=== PATIENT | female | born 1960 | race Caucasian/White ===

== ENCOUNTER 2017-05-18 05:32 | Outpatient (CLI) | payer OTHER ==
[~2017-05-18] VITALS: Ht 172.7 cm; Wt 64.9 kg
[2017-05-18] MEDS ORDERED: ESTR1TAB24 PO (15:26)
[2017-05-18] MEDS ORDERED: MEDR2.5T6 PO (15:26)
== END 2017-05-18 15:34 ==
LOC: PREOP 05:32
PROVIDERS: ATTEND Obstetrics & Gynecology
DX: Z01.818 Encounter for other preprocedural examination (principal); N95.0 Postmenopausal bleeding; D64.9 Anemia, unspecified

== ENCOUNTER 2017-05-23 10:59 | Day surgery (SDC) | payer OTHER ==
[~2017-05-23] VITALS: Ht 172.7 cm; Wt 64.9 kg
[~2017-05-23 10:59] MED LIST: ESTR1TAB24 PO; MEDR2.5T6 PO
[2017-05-23 11:05] VITALS: BP 145/91
[2017-05-23] MEDS ORDERED: ceFAZolin INJECTION 1,000 MG in NS (IVPB) 100 ML IV ONE (11:15)
[2017-05-23] MEDS: LACTATED RINGERS 1,000 ML IV PRN ×2 (11:50→13:48)
[2017-05-23 12:05] LABS: BASOPHILS % (AUTO) 1 % (0-10); EOSINOPHILS # (AUTO) 0.1 10^3/uL (0.0-0.3); EOSINOPHILS % (AUTO) 1 % (0-10); HEMATOCRIT 43 % (35-52); HEMOGLOBIN 14.5 G/DL (11.5-16.0); LYMPHOCYTES # (AUTO) 1.5 X 10^3 (1.0-4.0); LYMPHOCYTES % (AUTO) 26 % (12-44); MEAN CORPUSCULAR HEMOGLOBIN 31 PG (25-34); MEAN CORPUSCULAR HGB CONC 34 G/DL (32-36); MEAN CORPUSCULAR VOLUME 92 FL (80-99); MEAN PLATELET VOLUME 10.8 FL (7.4-10.4); MONOCYTES # (AUTO) 0.3 X 10^3 (0.0-1.0); MONOCYTES % (AUTO) 6 % (0-12); NEUTROPHILS % (AUTO) 67 % (42-75); PLATELET COUNT 169 10^3/uL (130-400); RED BLOOD COUNT 4.66 10^6/uL (4.35-5.85); RED CELL DISTRIBUTION WIDTH 13.5 % (10.0-14.5); WHITE BLOOD COUNT 5.9 10^3/uL (4.3-11.0)
[2017-05-23] MEDS ORDERED: MIDAZOLAM 2 MG/2 ML (VERSED) VIAL ONE (12:05)
[2017-05-23] MEDS ORDERED: fentaNYL INJECTION 100 MCG/2 ML AMP ONE (12:06)
--- NOTE | 2017-05-23 13:01 | Progress Note-Pre Operative ---
Pre-Operative Progress Note H&P Reviewed The H&P was reviewed, patient examined and no changes noted. Date Seen by Provider: May 23, 2017 Time Seen by Provider: 13:00 Date H&P Reviewed: May 23, 2017 Time H&P Reviewed: 13:01 Pre-Operative Diagnosis: Post menopausal bleeding/intrauterine mass TAMARA DIMAS MD May 23, 2017 1:01 pm
[2017-05-23] MEDS ORDERED: D5 LR IV SOLUTION 1,000 ML IV SCH (13:02)
--- NOTE | 2017-05-23 13:02 | Progress Note-Post Operative ---
Post-Operative Progess Note Surgeon (s)/Data Processing Control Clerk (s) Surgeon TAMARA DIMAS MD Pre-Operative Diagnosis Post menopausal bleeding/intrauterine mass Post-Operative Diagnosis Same with pathology pending Procedure & Operative Findings Date of Procedure 05/23/17 Procedure Performed/Findings Hysteroscopy with directed biopsy and D&C Anesthesia Type GETA Specimens/Packing Specimens Removed Intrauterine mass biopsied directly out and endometrial curettings Packing: None TAMARA DIMAS MD May 23, 2017 1:02 pm
[2017-05-23] MEDS ORDERED: OXYC-465 PO (13:03)
--- NOTE | 2017-05-23 13:05 | Discharge Instructions ---
Discharge Instructions Discharge Medications New, Converted or Re-Newed RX: RX on Chart Patient Instructions Patient Instructions: As directed Return to The Hospital For: As directed Activity & Diet Discharge Diet: No Restrictions Activity as Tolerated: No Orders-Post D/C & Referrals Follow Up Appt: Call to make follow up appt. for patient in 2 weeks. Activity: As tolerated and fully awake and no longer under the effect of anesthetics. Diet: As tolerated-Clear Liquids only if nauseated. May shower or tub bathe as desired. Nothing per vagina for 2 weeks. Patient to return to the clinic as soon as possible for: Temperature greater than 101F, Severe Pain, Foul discharge from incision or vagina, Excessive Bleeding (more than a period). TAMARA DIMAS MD May 23, 2017 1:05 pm
[2017-05-23] MEDS ORDERED: MEPERIDINE (DEMEROL) INJ 100 MG/ML IM ONE (13:15)
[2017-05-23] MEDS ORDERED: PROMETHAZINE INJ 25 MG/ML (PHENERGAN) AMP IM ONE (13:15)
[2017-05-23] MEDS ORDERED: oxyCODONE/APAP 10/325MG (PERCOCET 10) TABLET PO PRN (13:15)
[2017-05-23] MEDS ORDERED: ONDANSETRON 4 MG/2 ML (SDV) Z0FRAN IVP PRN ×2 (13:15→14:00)
[2017-05-23] MEDS ORDERED: KETOROLAC 30 MG/ML VIAL IVP ONE (13:15)
[2017-05-23] MEDS ORDERED: LIDOCAINE PF 2% 5 ML (XYLOCAINE) VIAL ONE (13:18)
[2017-05-23] MEDS ORDERED: proPOfol 200 MG/20 ML (DIPRIVAN) VIAL IV ONE (13:18)
[2017-05-23] MEDS ORDERED: LIDOCAINE JELLY 2% (XYLOCAINE) 5 ML TUBE ONE (13:18)
[2017-05-23] MEDS ORDERED: SEVOFLURANE (ULTANE) 15 ML INHAL SOLN ONE (13:19)
[2017-05-23] MEDS ORDERED: ONDANSETRON 4 MG/2 ML (SDV) Z0FRAN ONE (13:19)
[2017-05-23] MEDS ORDERED: morphine INJ 10 MG/ML 1ML (SYR OR VIAL) ONE (13:57)
[2017-05-23] MEDS ORDERED: MEPERIDINE (DEMEROL) INJ 50 MG/ML IVP PRN (14:00)
[2017-05-23] MEDS ORDERED: morphine INJ 10 MG/ML 1ML (SYR OR VIAL) IVP PRN (14:00)
--- NOTE | 2017-05-23 14:39 | Anesthesia-General Post-Op ---
General Patient Condition Mental Status/LOC: Same as Preop Cardiovascular: Satisfactory Nausea/Vomiting: Absent Respiratory: Satisfactory Pain: Controlled Complications: Absent Post Op Complications Complications None Follow Up Care/Instructions Patient Instructions None needed. Anesthesia/Patient Condition Patient Condition Patient is doing well, no complaints, stable vital signs, no apparent adverse anesthesia problems. MICKY MARIE DO May 23, 2017 14:39
[2017-05-23 14:55] VITALS: BP 176/90
[2017-05-23] MEDS ORDERED: oxyCODONE/APAP 10/325MG (PERCOCET 10) TABLET PO ONE (15:10)
[2017-05-23 15:25] VITALS: BP 155/69
[2017-05-23 16:00] VITALS: BP 152/72
[2017-05-23 16:10] VITALS: BP 152/72
--- NOTE | 2017-05-23 22:06 | OPERATIVE REPORT ---
DATE OF SERVICE: 05/23/2017 PREOPERATIVE DIAGNOSES: Postop bleeding and appearance of the endometrial mass on ultrasound. POSTOPERATIVE DIAGNOSES: Postop bleeding and appearance of the endometrial mass on ultrasound with endometrial synechiae and polypoid lesions of the endometrium with final pathology pending. OPERATIVE PROCEDURE: Hysteroscopy with directed biopsy and D and C. OPERATIVE DESCRIPTION: With the patient in the supine position under satisfactory general anesthesia, she was prepped and draped in the usual fashion for vaginal surgery. The urinary bladder had been drained prior to coming to the OR. A weighted speculum was placed in the posterior fornix of the vagina, cervix exposed and grasped anteriorly with a single tooth tenaculum. Uterus was sounded to 9.5 cm with uterine sound. The cervix was then serially dilated with Nathaniel dilators to accommodate a hysteroscope, which was introduced and using LR as a distending medium, the endometrial cavity was examined. There were several small polypoid eminences protruding from the posterior surface of the uterus more so to the patient's left and to the right. Both tubal ostia were evident. There were synechiae near both ostia more so on the left and on the right. There appeared to be a mass effect on the left consistent with submucosal fibroid. Biopsies representatively were taken from that left area and from near the right tubal ostia and then the polypoid eminences from the posterior vaginal wall were removed. Each of the specimens was sent to pathology labeled for the areas separately. Using a sharp curette, the endometrial cavity was curettaged in all 4 quadrants to good uterine cry with removal of a small amount of additional tissue. The hysteroscope was then reintroduced. The endometrial cavity was examined. There was no significant bleeding. There was no abnormal appearing pathology. The procedure was considered complete. The hysteroscope was removed as was the tenaculum. There was no bleeding from the tenaculum puncture sites and there was minimal oozing at the cervical os. Sponge and needle counts were correct on completion of the procedure. Estimated blood loss for the procedure was minimal. The patient tolerated the procedure well and was transferred to the recovery room in stable condition with plans for discharge home PAR. She tolerated the procedure well and was awakened uneventfully. Job ID: [id number] DocumentID: [id number] Dictated Date: 05/23/2017 13:39:02 Arabic Teacher Date: 05/23/2017 22:06:26 Dictated By: TAMARA DIMAS MD
== END 2017-05-23 16:10 | disposition home or self-care (01) ==
LOC: SDC 10:59
PROVIDERS: ATTEND Obstetrics & Gynecology
DX: N84.0 Polyp of corpus uteri (principal); N95.0 Postmenopausal bleeding; Z11.2 Encounter for screening for other bacterial diseases
CPT/HCPCS: 36415; 85025; 87081